=== PATIENT | male | born 1960 | race Hispanic/Latino ===

== ENCOUNTER 2017-12-20 13:30 | Emergency (ER) | payer OTHER ==
[~2017-12-20] VITALS: Ht 157.5 cm; Wt 72.6 kg
[2017-12-20] MEDS ORDERED: MECLIZINE HCL 12.5 MG TAB PO ONE (14:00)
[2017-12-20] MEDS ORDERED: SODIUM CHLORIDE 0.9% 1000ML 1,000 ML IV SCH (14:00)
[2017-12-20 14:07] LABS: BASOPHILS # (AUTO) 0.1 (0.0-0.1); BASOPHILS % 0.4 % (0.0-1.0); EOSINOPHILS % 0.1 % (0.0-6.0); HEMATOCRIT 41.1 % (38.2-49.6); HEMOGLOBIN 13.3 g/dL (14.0-18.0); LYMPHOCYTES # (AUTO) 1.6 (1.0-3.2); LYMPHOCYTES % 13.8 % (18.0-39.1); MEAN CORPUSCULAR HGB CONC 32.4 g/dL (31-35); MEAN CORPUSCULAR VOLUME 89.7 fL (81-99); MONOCYTES % 8.4 % (4.4-11.3); NEUTROPHILS # (AUTO) 9.1 (2.1-6.9); NEUTROPHILS % 76.9 % (38.7-80.0); PLATELET COUNT 344 x10e3/uL (140-360); RED BLOOD COUNT 4.58 x10e6/uL (4.3-5.7); RED CELL DISTRIBUTION WIDTH 12.9 % (11.7-14.4)
[2017-12-20 14:24] LABS: ALANINE AMINOTRANSFERASE 15 IU/L (0-55); ALBUMIN 3.7 g/dL (3.5-5.0); ALBUMIN/GLOBULIN RATIO 0.8 (0.8-2.0); ALKALINE PHOSPHATASE 82 IU/L (40-150); BLOOD UREA NITROGEN 22 mg/dL (7-26); BUN/CREATININE RATIO 21 (6-25); CALCIUM 9.4 mg/dL (8.4-10.2); CARBON DIOXIDE 29 mmol/L (22-29); CHLORIDE 102 mmol/L (98-107); CREATINE KINASE 138 IU/L (30-200); CREATININE, SERUM 1.07 mg/dL (0.72-1.25); EST GLOMERULAR FILTRATION RATE > 60 ML/MIN (60-); GLUCOSE 149 mg/dL (74-118); SODIUM 140 mmol/L (136-145)
--- NOTE | 2017-12-20 14:56 | Diagnostic Imaging Report ---
Exam: Head CT without contrast History: Vomiting, dizziness Comparison studies: None Technique: Axial images were obtained from the skull base to the vertex. Coronal and sagittal images reconstructed from the axial data. Intravenous contrast: None Findings: Scalp: No abnormalities. Bones: No fractures, blastic or lytic lesions. Brain sulci: Appropriate for age. Ventricles: Normal in size and configuration. No hydrocephalus. Extra-axial spaces: No masses, no fluid collection. Parenchyma: No abnormal densities. No masses, acute hemorrhage, acute or chronic vascular insults. Sellar/suprasellar region: No abnormalities. Craniocervical junction: Patent foramen magnum. No Chiari one malformation. Incidental findings: Atherosclerotic calcifications in the carotid siphons and intradural vertebral arteries. Mild nonspecific scattered inflammatory mucosal thickening throughout the paranasal sinuses. IMPRESSION: No acute intracranial abnormalities. Signed by: Dr. Jair Velasco M.D. on 12/20/2017 2:53 PM
[2017-12-20 16:09] VITALS: BP 110/65
== END 2017-12-20 16:29 | disposition home or self-care (01) ==
LOC: ER 13:30
DX: R42 Dizziness and giddiness (principal); H81.11 Benign paroxysmal vertigo, right ear; I10 Essential (primary) hypertension; E11.9 Type 2 diabetes mellitus without complications
CPT/HCPCS: 36415; 70450; 80053; 82550; 82553; 84484; 85025; 93005; 99284; J7030

== ENCOUNTER 2018-02-18 11:44 | Emergency (ER) | payer SELFPAY ==
[~2018-02-18] VITALS: Ht 157.5 cm; Wt 68.0 kg
--- OUTSIDE RECORDS SUMMARY | 2018-02-18 11:47 | XMS REPORT ---
Author Author [facility] Address Unknown Phone Unavailable Care Team Providers Care Oceanographic Meteorologist Name Role Phone ESTEPHANIA AGUIRRE Unavailable Unavailable Problems This patient has no known problems. Allergies, Adverse Reactions, Alerts This patient has no known allergies or adverse reactions. Medications This patient has no known medications. Results Test Description Test Time Test Comments Text Results Atomic Results Result Comments CT BRAIN WO [place] [address] Patient Name: TIM PRESCOTT MR #: [id number] : 1960 Age/Sex: 57/M Req #: [id number] Adm Physician: Ordered by: ESTEPHANIA AGUIRRE MD Report #: [id number] Location: ER Room/Bed: Procedure: [id number] CT/CT BRAIN WO Exam Date: 12/20/17 Exam Time: 1410 REPORT STATUS: Signed Exam: Head CT without contrast History: Vomiting, dizziness Comparison studies: None Technique: Axial images were obtained from the skull base to the vertex. Coronal and sagittal images reconstructed from the axial data. Intravenous contrast: None Findings: Scalp: No abnormalities. Bones: No fractures, blastic or lytic lesions. Brain sulci: Appropriate for age. Ventricles: Normal in size and configuration. No hydrocephalus. Extra-axial spaces: No masses, no fluid collection. Parenchyma: No abnormal densities. No masses, acute hemorrhage, acute or chronic vascular insults. Sellar/suprasellar region: No abnormalities. Craniocervical junction: Patent foramen magnum. No Chiari one malformation. Incidental findings: Atherosclerotic calcifications in the carotid siphons and intradural vertebral arteries. Mild nonspecific scattered inflammatory mucosal thickening throughout the paranasal sinuses. IMPRESSION: No acute intracranial abnormalities. Signed by: Dr. Valentina Vásquez M.D. on 12/20/2017 2:53 PM Dictated By: VALENTINA VÁSQUEZ MD 1454 Transcribed By : HO on 12/20/17 1455 COPY TO: ESTEPHANIA AGUIRRE MD
--- OUTSIDE RECORDS SUMMARY | 2018-02-18 11:47 | XMS REPORT | Continuity of Care Document ---
Author Author [facility] Organization [facility] Address [address] [place] [address] Phone Unavailable Care Team Providers Care Sole Layer Name Role Phone LOUISE LOPEZ MD PCP Advance Directives Directive Response Recorded Date/Time Does the patient have an advance directive? No 12/20/17 2:49pm If yes, is advance directive on file with [facility]? No 12/20/17 2:49pm If not on file with [facility] will patient provide a copy? No 12/20/17 2:49pm Do you have a Directive to Physician? No 12/20/17 2:49pm Do you have a Medical Power of Personal Care Home Administrator? No 12/20/17 2:49pm Do you have an out of hospital Do Not Resuscitate Order? No 12/20/17 2:49pm Do you have any special needs we should be aware of? No 12/20/17 2:49pm Do you have a support person here with you today? Yes 12/20/17 2:49pm Did patient receive Notice of Privacy Practices? Yes 12/20/17 2:49pm Did patient receive patient rights and responsibilities? Yes 12/20/17 2:49pm Problems No problem information available. Medications No medication information available. Social History Smoking Status Start Date Stop Date Never Smoker Hospital Discharge Instructions No hospital discharge instruction information available. Plan of Care Discharge Date 12/20/17 4:29pm Disposition HOME, SELF-CARE Condition at Discharge Stable Instructions/Education Provided Dizziness Vomiting - Adult Forms Provided Work/School Excuse Prescriptions See Medication Section Additional Instructions/Education FOLLOW UP WITH YOUR DOCTOR RETURN TO ER IF WORSE IN ANY WAY TAKE MECLIZINE PRESCRIBED Functional Status No functional status information available. Allergies, Adverse Reactions, Alerts Allergen Type Severity Reaction Status Last Updated Codeine Adverse Reaction Mild VOMITING Active 12/20/17 Immunizations No immunization information available. Vital Signs Acute Vital Signs Vital Response Date/Time Pulse Pulse Rate (adult) 68 bpm (60 - 90) 12/20/2017 4:09pm Respiratory Rate 16 bpm (12 - 24) 12/20/2017 4:09pm Blood Pressure 110/65 mm Hg 12/20/2017 4:09pm Height 5 ft 2 in 12/20/2017 1:43pm Weight 160 lb 12/20/2017 1:43pm Body Mass Index 29.3 kg/m^2 12/20/2017 1:43pm Results Laboratory Results Test Name Result Units Flags Reference Collection Date/Time Result Date/ Time Comments White Blood Count 11.88 x10e3/uL H 4.8-10.8 12/20/2017 1:50pm 2017 2:07pm Red Blood Count 4.58 x10e6/uL 4.3-5.7 12/20/2017 1:50pm 12/20/2017 2: 07pm Hemoglobin 13.3 g/dL L 14.0-18.0 12/20/2017 1:50pm 12/20/2017 2:07pm Hematocrit 41.1 % 38.2-49.6 12/20/2017 1:50pm 12/20/2017 2:07pm Mean Corpuscular Volume 89.7 fL 81-99 12/20/2017 1:50pm 12/20/2017 2: 07pm Mean Corpuscular Hemoglobin 29.0 pg 28-32 12/20/2017 1:50pm 12/20/2017 2:07pm Mean Corpuscular Hemoglobin Concent 32.4 g/dL 31-35 12/20/2017 1:50pm 12/20/2017 2:07pm Red Cell Distribution Width 12.9 % 11.7-14.4 12/20/2017 1:50pm 2017 2:07pm Platelet Count 344 x10e3/uL 140-360 12/20/2017 1:50pm 12/20/2017 2: 07pm Neutrophils (%) (Auto) 76.9 % 38.7-80.0 12/20/2017 1:50pm 12/20/2017 2: 07pm Lymphocytes (%) (Auto) 13.8 % L 18.0-39.1 12/20/2017 1:50pm 12/20/2017 2 :07pm Monocytes (%) (Auto) 8.4 % 4.4-11.3 12/20/2017 1:50pm 12/20/2017 2: 07pm Eosinophils (%) (Auto) 0.1 % 0.0-6.0 12/20/2017 1:50pm 12/20/2017 2: 07pm Basophils (%) (Auto) 0.4 % 0.0-1.0 12/20/2017 1:50pm 12/20/2017 2:07pm IM GRANULOCYTES % 0.4 % 0.0-1.0 12/20/2017 1:50pm 12/20/2017 2:07pm Neutrophils # (Auto) 9.1 H 2.1-6.9 12/20/2017 1:50pm 12/20/2017 2: 07pm Lymphocytes # (Auto) 1.6 1.0-3.2 12/20/2017 1:50pm 12/20/2017 2:07pm Monocytes # (Auto) 1.0 H 0.2-0.8 12/20/2017 1:50pm 12/20/2017 2:07pm Eosinophils # (Auto) 0.0 0.0-0.4 12/20/2017 1:50pm 12/20/2017 2:07pm Basophils # (Auto) 0.1 0.0-0.1 12/20/2017 1:50pm 12/20/2017 2:07pm Absolute Immature Granulocyte (auto 0.05 x10e3/uL 0-0.1 12/20/2017 1: 50pm 12/20/2017 2:07pm Sodium Level 140 mmol/L 136-145 12/20/2017 1:50pm 12/20/2017 2:26pm Potassium Level 4.0 mmol/L 3.5-5.1 12/20/2017 1:50pm 12/20/2017 2:26pm Chloride Level 102 mmol/L 98-107 12/20/2017 1:50pm 12/20/2017 2:26pm Carbon Dioxide Level 29 mmol/L 22-29 12/20/2017 1:50pm 12/20/2017 2: 26pm Anion Gap 13.0 mmol/L 8-16 12/20/2017 1:50pm 12/20/2017 2:26pm Blood Urea Nitrogen 22 mg/dL 7-12/20/2017 1:50pm 12/20/2017 2:26pm Creatinine 1.07 mg/dL 0.72-1.25 12/20/2017 1:50pm 12/20/2017 2:26pm BUN/Creatinine Ratio 21 6-25 12/20/2017 1:50pm 12/20/2017 2:26pm Estimat Glomerular Filtration Rate > 60 ML/MIN 60- 12/20/2017 1:50pm 2:26pm Ranges were taken from the National Kidney Disease Education Program and the National Kid[employer] literature. Reference ranges: 60 or greater: Normal 16-59 (for 3 consecutive months): Chronic kidney disease 15 or less: Kidney failure Glucose Level 149 mg/dL H 74-118 12/20/2017 1:50pm 12/20/2017 2:26pm Calcium Level 9.4 mg/dL 8.4-10.2 12/20/2017 1:50pm 12/20/2017 2:26pm Total Bilirubin 0.7 mg/dL 0.2-1.2 12/20/2017 1:50pm 12/20/2017 2:26pm Aspartate Amino Transf (AST/SGOT) 14 IU/L 5-34 12/20/2017 1:50pm 2017 2:26pm Alanine Aminotransferase (ALT/SGPT) 15 IU/L 0-55 12/20/2017 1:50pm 2:26pm Total Protein 8.1 g/dL 6.5-8.1 12/20/2017 1:50pm 12/20/2017 2:26pm Albumin 3.7 g/dL 3.5-5.0 12/20/2017 1:50pm 12/20/2017 2:26pm Globulin 4.4 g/dL H 2.3-3.5 12/20/2017 1:50pm 12/20/2017 2:26pm Albumin/Globulin Ratio 0.8 0.8-2.0 12/20/2017 1:50pm 12/20/2017 2: 26pm Alkaline Phosphatase 82 IU/L 40-150 12/20/2017 1:50pm 12/20/2017 2: 26pm Creatine Kinase 138 IU/L 30-200 12/20/2017 1:50pm 12/20/2017 2:26pm Creatine Kinase MB 1.40 ng/mL 0-5.0 12/20/2017 1:50pm 12/20/2017 2: 31pm Troponin I < 0.001 ng/mL 0-0.300 12/20/2017 1:50pm 12/20/2017 2:31pm Procedures Procedure Status Date Provider(s) Computed tomography of brain without radiopaque contrast Active 12/20/17 ESTEPHANIA AGUIRRE MD Encounters Encounter Location Arrival/Admit Date Discharge/Depart Date Attending Provider Departed Emergency Room [facility] 12/20/17 1:30pm 4:29pm ESTEPHANIA AUGIRRE MD
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
[2018-02-18 13:54] LABS: BASOPHILS # (AUTO) 0.1 (0.0-0.1); BASOPHILS % 0.8 % (0.0-1.0); EOSINOPHILS # (AUTO) 0.2 (0.0-0.4); EOSINOPHILS % 2.3 % (0.0-6.0); HEMATOCRIT 45.6 % (38.2-49.6); HEMOGLOBIN 14.5 g/dL (14.0-18.0); LYMPHOCYTES # (AUTO) 1.7 (1.0-3.2); LYMPHOCYTES % 22.2 % (18.0-39.1); MEAN CORPUSCULAR HEMOGLOBIN 29.4 pg (28-32); MEAN CORPUSCULAR HGB CONC 31.8 g/dL (31-35); MEAN CORPUSCULAR VOLUME 92.5 fL (81-99); MONOCYTES # (AUTO) 0.6 (0.2-0.8); MONOCYTES % 7.9 % (4.4-11.3); NEUTROPHILS # (AUTO) 5.2 (2.1-6.9); NEUTROPHILS % 66.5 % (38.7-80.0); PLATELET COUNT 257 x10e3/uL (140-360); RED BLOOD COUNT 4.93 x10e6/uL (4.3-5.7); RED CELL DISTRIBUTION WIDTH 14.2 % (11.7-14.4)
[2018-02-18 14:13] LABS: ALANINE AMINOTRANSFERASE 18 IU/L (0-55); ALBUMIN 3.9 g/dL (3.5-5.0); ALBUMIN/GLOBULIN RATIO 1.1 (0.8-2.0); ALKALINE PHOSPHATASE 58 IU/L (40-150); ANION GAP 13.1 mmol/L (8-16); BLOOD UREA NITROGEN 20 mg/dL (7-26); BUN/CREATININE RATIO 22 (6-25); CALCIUM 9.7 mg/dL (8.4-10.2); CARBON DIOXIDE 26 mmol/L (22-29); CHLORIDE 103 mmol/L (98-107); CREATINE KINASE 188 IU/L (30-200); CREATININE, SERUM 0.91 mg/dL (0.72-1.25); EST GLOMERULAR FILTRATION RATE > 60 ML/MIN (60-); GLUCOSE 116 mg/dL (74-118); POTASSIUM 4.1 mmol/L (3.5-5.1); SODIUM 138 mmol/L (136-145)
[2018-02-18 14:14] LABS: INR 1.02; PARTIAL THROMBOPLASTIN TIME 26.9 seconds (23.8-35.5); PROTHROMBIN TIME 12.6 seconds (11.9-14.5)
--- NOTE | 2018-02-18 15:10 | Diagnostic Imaging Report ---
EXAM: CT Chest WITH contrast 02/18/2018 1:22 PM INDICATION: Pulmonary opacities on chest radiograph. Rule out pulmonary contusions. COMPARISON: Same-day chest radiographs TECHNIQUE: Chest was scanned utilizing a multidetector helical scanner from the lung apex through the level of the adrenal glands after the uneventful administration of IV contrast. Coronal and sagittal reformations were obtained. Routine protocol was performed. IV CONTRAST: 100 mL of Isovue-370 RADIATION DOSE: Total DLP: 474.57 mGy*cm Estimated effective dose: (DLP x 0.014 x size factor) mSv COMPLICATIONS: None FINDINGS: LINES/ TUBES: None. LUNGS AND AIRWAYS: Linear, scattered, subpleural areas of consolidation and groundglass opacity in both upper and lower lobes. Some of these areas are associated with subpleural thickening, particularly on the right side, suggesting a chronic process. Large airways are patent. PLEURA: As above, areas of pleural thickening associated with subpleural consolidation on the right, suggestive of a chronic process. No pleural effusion or pneumothorax. HEART AND MEDIASTINUM:No mediastinal, hilar or axillary lymphadenopathy. The heart is normal in size. No pericardial effusion. The visualized thyroid gland is normal. UPPER ABDOMEN: Limited evaluation of the upper abdomen shows no specific abnormality. BONES: No aggressive lytic or blastic lesions. Multilevel degenerative changes of the thoracic spine. SOFT TISSUES: Unremarkable. IMPRESSION: 1. Linear and subpleural areas of consolidation and groundglass opacity in both lungs, all lobes. 2. The configuration of these lesions and the lack of overlying rib fractures suggests an etiology other than acute lung contusions. 3. These may represent scarring or organizing pneumonia. Recommend follow-up radiographs to evaluate for change. Signed by: Dr. Win Washington M.D. on 02/18/2018 3:07 PM
[2018-02-18] MEDS ORDERED: IOPAMIDOL 370 MG/ML 200 ML INFUS..BTL INJ ONE (18:47)
[2018-02-18] MEDS ORDERED: SODIUM CHLORIDE 0.9% 50ML 50 ML ONE (18:47)
== END 2018-02-18 15:42 | disposition home or self-care (01) ==
LOC: ER 11:44
DX: M54.2 Cervicalgia (principal); S16.1XXA Strain of muscle, fascia and tendon at neck level, initial encounter; V43.52XA Car driver injured in collision with other type car in traffic accident, initial encounter; Y92.488 Other paved roadways as the place of occurrence of the external cause
CPT/HCPCS: 36415; 70450; 71046; 71260; 72125; 80053; 82550; 82553; 84484; 85025; 85610; 85730; 93005; 99284; Q9967

== ENCOUNTER → 2018-05-17 | Outpatient (CLI) | payer OTHER ==
--- NOTE | 2018-05-17 15:05 | Diagnostic Imaging Report ---
PROCEDURE: CT CHEST WITHOUT CONTRAST CT scan of the chest WITHOUT intravenous contrast, using standard protocol. TECHNIQUE: The chest was scanned utilizing a multidetector helical scanner from the apex to the level of the adrenal glands. No IV contrast was administered because of nodule protocol. Coronal and sagittal multiplanar reformations were obtained. DLP: 225.2 mGy-cm COMPARISON: Chest CT 02/18/2018 INDICATIONS: NODULES FINDINGS: LINES/ TUBES: None. LUNGS AND AIRWAYS: Improvement in the previously noted linear, scattered, subpleural areas of consolidation and groundglass opacity in both upper and lower lobes. Persistent subpleural thickening, particularly on the right side, suggesting a chronic process. Stable right upper lobe 0.4 cm nodule (series 3 image 39). Slightly decreased right upper lobe 1.1 x 0.9 cm nodular opacity (series 3 image 57), previously 1.2 x 1.1 cm. Large airways are patent. PLEURA: Persistent areas of pleural thickening associated with subpleural consolidation on the right, suggestive of a chronic process. No pleural effusion or pneumothorax. HEART AND MEDIASTINUM: No mediastinal, hilar or axillary lymphadenopathy. The heart is normal in size. No pericardial effusion. The visualized thyroid gland is normal. Coronary artery and aortic calcifications. UPPER ABDOMEN: Limited evaluation of the upper abdomen shows no specific abnormality. BONES: No aggressive lytic or blastic lesions. Multilevel degenerative changes of the thoracic spine. SOFT TISSUES: Unremarkable. IMPRESSION: Improvement in the linear and subpleural areas of consolidation and groundglass opacity in both lungs. Dictated by: Kavon Mueller M.D. on 05/17/2018 at 15:11 Electronically approved by: Kavon Mueller M.D. on 05/17/2018 at 15:11
== END ==
LOC: CT 14:10
PROVIDERS: ATTEND Internal Medicine Critical Care Medicine
DX: K21.9 Gastro-esophageal reflux disease without esophagitis (principal); J98.4 Other disorders of lung; J98.11 Atelectasis; G47.33 Obstructive sleep apnea (adult) (pediatric); Z77.118 Contact with and (suspected) exposure to other environmental pollution
CPT/HCPCS: 71250; 87385

== ENCOUNTER → 2020-10-14 | Outpatient (CLI) | payer OTHER ==
[~2020-10-14] MED LIST: COVID-19 VACC, MRNA(MODERNA)/PF 100 MCG/0.5 ML VIAL IM ONE
== END | disposition home or self-care (01) ==
LOC: VACCPMC 08:00
DX: Z23 Encounter for immunization (principal); Z20.822 Contact with and (suspected) exposure to COVID-19

== ENCOUNTER → 2020-11-11 | Outpatient (CLI) | payer OTHER | END | DRG 951 | LOC: VACCPMC 09:50 | DX: Z23 Encounter for immunization (principal); Z20.822 Contact with and (suspected) exposure to COVID-19 | CPT/HCPCS: 0012A; 91301 ==